=== PATIENT | male | born 1995 | race Caucasian/White ===

== ENCOUNTER 2023-01-30 16:41 | Emergency (ER) | payer SELFPAY ==
[~2023-01-30] VITALS: Ht 182.9 cm; Wt 104.1 kg
[2023-01-30 20:45] VITALS: BP 129/78; PULSE 76; RESP 18; TEMP 98.7; O2SAT 100
[2023-01-30] MEDS ORDERED: IBUP-1456 PO (22:20)
== END 2023-01-30 23:13 | disposition home or self-care (01) ==
LOC: ER 16:41
DX: S62.306A Unspecified fracture of fifth metacarpal bone, right hand, initial encounter for closed fracture (principal); X58.XXXA Exposure to other specified factors, initial encounter; Y93.89 Activity, other specified; Y92.89 Other specified places as the place of occurrence of the external cause; Y99.8 Other external cause status
CPT/HCPCS: 29125; 73130

== ENCOUNTER 2023-02-06 12:21 | Emergency (ER) | payer BC, MEDICAID ==
[~2023-02-06] VITALS: Ht 182.9 cm; Wt 102.1 kg
[~2023-02-06 12:21] MED LIST: IBUP-1456 PO
[2023-02-06 12:55] LABS: Basophils # (auto) 0 10 ^3/uL (0-0.2); Basophils % (auto) 0.5 % (0.0-2.0); Eosinophils # (auto) 0.1 10 ^3/uL (0-0.8); Eosinophils % (auto) 1.4 % (0.0-7.0); Hematocrit 44.2 % (41.0-53.0); Hemoglobin 15.3 g/dL (13.5-17.5); Lymphocytes # (auto) 2.2 10 ^3/uL (0.4-5.4); Lymphocytes % (auto) 27.9 % (10.0-50.0); Mean Corpuscular Hgb Conc. 34.7 g/dL (32.0-36.0); Mean Corpuscular Volume 89.4 fL (80.0-100.0); Monocytes # (auto) 0.6 10 ^3/uL (0-1.3); Monocytes % (auto) 7.9 % (0.0-12.0); Neutrophils # (auto) 4.9 10 ^3/uL (1.6-8.6); Neutrophils % (auto) 62.3 % (37.0-80.0); Nucleated Red Blood Cells % 0.1 %; Red Blood Cells 4.94 10^6/uL (4.5-5.90); Red Cell Distribution Width 12.9 % (11.8-14.3); White Blood Cell 7.8 10^3/uL (4.4-10.8)
[2023-02-06 13:15] LABS: Alanine Aminotransferase 29 U/L (7-40); Albumin 4.8 g/dL (3.2-4.8); Alkaline Phosphatase 61 U/L (46-116); Aspartate Aminotransferase 11 U/L (13-40); BUN/Creatinine Ratio 7.7 (10.0-20.0); Bilirubin, Total 0.6 mg/dL (0.2-1.0); Blood Urea Nitrogen 7 mg/dL (9-23); Calcium 9.5 mg/dL (8.5-10.1); Carbon Dioxide 26 mmol/L (20-30); Glucose 94 mg/dL (74-106); Total Protein 7.5 g/dL (5.7-8.2)
[2023-02-06] MEDS ORDERED: DICYCLOMINE HCL (10MG/ML) 2 ML AMPULE IM ONE (13:15)
[2023-02-06 13:35] LABS: Anion Gap 7 (5-15); Chloride 106 mmol/L (98-107); Potassium 4.1 mmol/L (3.5-5.1); Sodium 139 mmol/L (136-145)
[2023-02-06 13:41] LABS: Lipase 38 U/L (12-53)
[2023-02-06 13:54] LABS: Urine WBC None Seen /hpf (0 - 3)
[2023-02-06 14:38] LABS: Urine Bacteria NONE SEEN /hpf (None Seen); Urine Blood Negative /uL (Negative); Urine Clarity Clear (Clear); Urine Color Colorless (Yellow); Urine Mucus FEW (None Seen); Urine Protein, UAD Negative (Negative); Urine Specific Gravity 1.007 (1.001-1.035); Urine Urobilinogen Normal (Negative); Urine pH 5.5 (5.0-8.0)
[2023-02-06] MEDS ORDERED: DICY10CA PO (15:11)
[2023-02-06] MEDS ORDERED: NAPR-1334 PO (15:12)
[2023-02-06 16:15] VITALS: BP 128/72; PULSE 80; RESP 16; TEMP 97.2; O2SAT 97
== END 2023-02-06 16:14 | disposition home or self-care (01) ==
LOC: ER 12:21
DX: R10.11 Right upper quadrant pain (principal); M54.6 Pain in thoracic spine; F17.210 Nicotine dependence, cigarettes, uncomplicated; Z90.49 Acquired absence of other specified parts of digestive tract
CPT/HCPCS: 36415; 71046; 76705; 80053; 81001; 83690; 85025; 85379; 96372; 99285; J0500